=== PATIENT | female | born 1965 | race Caucasian/White ===

== ENCOUNTER 2016-07-30 16:33 | Emergency (ER) | payer BC ==
[2016-07-30] MEDS ORDERED: RX INFO: IV CONTRAST WAS GIVEN 1 EACH MISC MISCELLANE PRN (17:55)
[2016-07-30] MEDS ORDERED: KETOROLAC 30 MG/ML 1 ML VIAL IVP STA (17:55)
[2016-07-30] MEDS ORDERED: SODIUM CHLORIDE 0.9% 1,000 ML IV STA ×2 (17:55→17:59)
[2016-07-30] MEDS ORDERED: ONDANSETRON 4 MG/2 ML VIAL IVP STA (17:55)
--- NOTE | 2016-07-30 17:59 | ED ---
Abdominal Pain HPI - General Chief Complaint: Abdominal Pain Stated Complaint: Abd Pain Time Seen by Provider: 07/30/16 17:49 Source: patient, RN notes reviewed Mode of arrival: ambulatory Limitations: no limitations - History of Present Illness Initial Comments: 50-year-old female presents emergency Department chief complaint of right upper quadrant abdominal pain. He states she's had this for the past few days. Patient states she has nausea and food seems to make it worse. Patient states she hasn't had any vomiting but she has had diarrhea. Patient states she went to her doctor's department on antibiotics and sent her for a CAT scan which she has not had done yet. Patient states she was concerned because she just continues to have the pain she continues to not wanting eat so she thought that she should be seen. Patient states she is not currently having any other symptoms at this time. Patient denies any recent fever, chills, shortness of breath, chest pain, back pain, vomiting, numbness or tingling, dysuria or hematuria, constipation or headaches or visual changes, or any other current symptoms. - Related Data Home Medications Medication Instructions Recorded Confirmed metroNIDAZOLE [Flagyl] 500 mg PO Q8H 07/30/16 07/30/16 Previous Rx's Medication Instructions Recorded Nitrofurantoin Macrocrystal 100 mg PO BID #14 cap 07/30/16 [Macrodantin] Ondansetron Odt [Zofran ODT] 4 mg PO Q8HR PRN #20 tab 07/30/16 Allergies Allergy/AdvReac Type Severity Reaction Status Date / Time ciprofloxacin [From Cipro] Allergy Rash/Hives Verified 07/30/16 18:23 banana AdvReac Nausea & Verified 07/30/16 18:20 Vomiting Review of Systems ROS Statement: Those systems with pertinent positive or pertinent negative responses have been documented in the HPI. ROS Other: All systems not noted in ROS Statement are negative. Past Medical History Past Medical History: No Reported History History of Any Multi-Drug Resistant Organisms: None Reported Past Surgical History: No Surgical Hx Reported Past Psychological History: No Psychological Hx Reported Smoking Status: Never smoker Past Alcohol Use History: None Reported Past Drug Use History: None Reported General Exam - General Exam Comments Initial Comments: General: The patient is awake and alert, in no distress, and does not appear acutely ill. Eye: Pupils are equal, round and reactive to light, extra-ocular movements are intact; there is normal conjunctiva bilaterally. No signs of icterus. Ears, nose, mouth and throat: There are moist mucous membranes and no oral lesions. Neck: The neck is supple, there is no tenderness . Cardiovascular: There is a regular rate and rhythm. No murmur, rub or gallop is appreciated. Respiratory: Lungs are clear to auscultation, respirations are non-labored, breath sounds are equal. No wheezes, stridor, rales, or rhonchi. Gastrointestinal: Soft, non-distended, mildly tender in right upper quadrant of the abdomen without masses or organomegaly noted. There is no rebound or guarding present. No CVA tenderness. Bowel sounds are unremarkable. Back: There is no tenderness to palpation in the midline. There is no obvious deformity. No rashes noted. Musculoskeletal: Normal ROM, no tenderness, There is no pedal edema. There is no calf tenderness or swelling. Sensation intact. Pulses equal bilaterally 2+. Neurological: CN II-XII intact, There are no obvious motor or sensory deficits. Coordination appears grossly intact. Speech is normal. Skin: Skin is warm and dry and no rashes or lesions are noted. Psychiatric: Cooperative, appropriate mood & affect, normal judgment. Limitations: no limitations Course Vital Signs 07/30/16 07/30/16 16:45 19:26 Temperature 98.4 F 100.2 F H Pulse Rate 120 H 92 Respiratory 20 18 Rate Blood Pressure 115/70 131/68 O2 Sat by Pulse 98 98 Oximetry Medical Decision Making - Medical Decision Making 50-year-old female presents emergency department chief complaint abdominal pain. This time lab work and CAT scan are reviewed. This time it does appear the patient does have dehydration as well as hypokalemia. We did place patient' s potassium as well as give the patient fluids. We discussed close follow up with her doctor and we'll switch her to nitrofurantoin which should she patient' s UTI. Patient is agreeable with the plan all questions have been answered. She will be discharged. - Lab Data Result diagrams: 07/30/16 18:30 07/30/16 18:30 Lab Results 07/30/16 07/30/16 07/30/16 Range/Units 18:30 18:30 18:30 WBC 6.2 (3.8-10.6) k/uL RBC 5.89 H (3.80-5.40) m/uL Hgb 17.2 H (11.4-16.0) gm/dL Hct 48.7 H (34.0-46.0) % MCV 82.7 D (80.0-100.0) fL MCH 29.3 (25.0-35.0) pg MCHC 35.4 (31.0-37.0) g/dL RDW 13.2 (11.5-15.5) % Plt Count 365 (150-450) k/uL Neutrophils % (Manual) 51.0 % Band Neutrophils % 5.0 % Lymphocytes % (Manual) 35.0 % Monocytes % (Manual) 4.0 % Eosinophils % (Manual) 5.0 % Neutrophils # (Manual) 3.5 (1.3-7.7) k/uL Lymphocytes # (Manual) 2.2 (1.0-4.8) k/uL Monocytes # (Manual) 0.2 (0-1.0) k/uL Eosinophils # (Manual) 0.3 (0-0.7) k/uL Nucleated RBCs 0 (0-0) /100 WBC Manual Slide Review Performed Toxic Granulation Present Sodium 136 L (137-145) mmol/L Potassium 3.1 L (3.5-5.1) mmol/L Chloride 97 L (98-107) mmol/L Carbon Dioxide 26 (22-30) mmol/L Anion Gap 13 mmol/L BUN 4 L (7-17) mg/dL Creatinine 0.79 (0.52-1.04) mg/dL Est GFR (MDRD) Af Amer >60 (>60 ml/min/1.73 sqM) Est GFR (MDRD) Non-Af >60 (>60 ml/min/1.73 sqM) Glucose 94 (74-99) mg/dL Calcium 9.1 (8.4-10.2) mg/dL Total Bilirubin 0.8 (0.2-1.3) mg/dL AST 34 (14-36) U/L ALT 50 (9-52) U/L Alkaline Phosphatase 66 (38-126) U/L Total Protein 6.2 L (6.3-8.2) g/dL Albumin 3.6 (3.5-5.0) g/dL Amylase 59 (30-110) U/L Lipase 206 (23-300) U/L Urine Color Yellow Urine Appearance Clear (Clear) Urine pH 6.0 (5.0-8.0) Ur Specific [place] 1.016 (1.001-1.035) Urine Protein 1+ H (Negative) Urine Glucose (UA) Negative (Negative) Urine Ketones 4+ H (Negative) Urine Blood Trace H (Negative) Urine Nitrite Negative (Negative) Urine Bilirubin 1+ H (Negative) Urine Urobilinogen 3.0 (<2.0) mg/dL Ur Leukocyte Esterase Trace H (Negative) Urine RBC 2 (0-5) /hpf Urine WBC 6 H (0-5) /hpf Ur Squamous Epith Cells 2 (0-4) /hpf Granular Casts 5 (0) /lpf Urine Mucus Many H (None) /hpf Disposition Clinical Impression: Dehydration, Hypokalemia, Diarrhea, UTI (urinary tract infection) Disposition: HOME SELF-CARE Condition: Stable Instructions: Dehydration (ED) Additional Instructions: Please use medication as discussed. Please follow up with family doctor if symptoms have not improved over the next two days. Please return to the emergency room if your symptoms increase or worsen or for any other concerns. Prescriptions: Nitrofurantoin Macrocrystal [Macrodantin] 100 mg PO BID #14 cap Ondansetron Odt [Zofran ODT] 4 mg PO Q8HR PRN #20 tab PRN Reason: Nausea Referrals: Chris Major DO [Primary Care Provider] - 1-2 days Time of Disposition: 20:13
[2016-07-30 18:55] LABS: Appearance,Urine Clear (Clear); Bilirubin,Urine 1+ (Negative); Glucose,Urine (UA) Negative (Negative); Granular Casts,Urine 5 /lpf (0); Ketones,Urine 4+ (Negative); Leukocyte Esterase,Urine Trace (Negative); Mucus,Urine Many /hpf; Nitrite,Urine Negative (Negative); Particle Count 13874; Protein,Urine 1+ (Negative); RBC,Urine 2 /hpf (0-5); Specific Gravity,Urine 1.016 (1.001-1.035); Squamous Epithelial Cell,Urine 2 /hpf (0-4); UA Billing (MACRO vs. MICRO) MICRO; WBC,Urine 6 /hpf (0-5)
[2016-07-30 18:59] LABS: Aty Lym Flag Slight; CH 29.9; CHCM 36.4; HCT 48.7 % (34.0-46.0); HDW 2.91; HGB 17.2 gm/dL (11.4-16.0); MCH 29.3 pg (25.0-35.0); MCHC 35.4 g/dL (31.0-37.0); Mean Platelet Volume 6.5; RBC 5.89 m/uL (3.80-5.40); RDW 13.2 % (11.5-15.5); WBC 6.2 k/uL (3.8-10.6); WBC (Perox) 6.08
[2016-07-30 19:02] LABS: MCV 82.7 fL (80.0-100.0)
[2016-07-30 19:03] LABS: ALT 50 U/L (9-52); AST 34 U/L (14-36); Alkaline Phosphatase 66 U/L (38-126); Amylase 59 U/L (30-110); Anion Gap 13 mmol/L; Blood Urea Nitrogen 4 mg/dL (7-17); Calcium 9.1 mg/dL (8.4-10.2); Carbon Dioxide 26 mmol/L (22-30); Chloride 97 mmol/L (98-107); Glucose 94 mg/dL (74-99); Non-African American GFR(MDRD) >60 (>60 ml/min/1.73 sqM); Potassium 3.1 mmol/L (3.5-5.1); Sodium 136 mmol/L (137-145); Total Bilirubin 0.8 mg/dL (0.2-1.3); Total Protein 6.2 g/dL (6.3-8.2)
--- NOTE | 2016-07-30 19:16 | CT ---
EXAMINATION TYPE: CT abdomen pelvis w con DATE OF EXAM: 07/30/2016 7:01 PM COMPARISON: 02/18/2013 HISTORY: Upper Abdomen pain with Nausea, vomiting and diarrhea CT DLP: 947 mGycm Automated exposure control for dose reduction was used. TECHNIQUE: Helical acquisition of images was performed from the lung bases through the pelvis. CONTRAST: Performed without Oral Contrast and with IV Contrast, patient injected with 100 mL of Omnipaque 300. FINDINGS: Lung bases are clear. There is no pleural effusion. Liver appears normal. Bile ducts are not dilated. There are tiny calcified splenic granulomata. There is no sign of pancreatic mass. Gallbladder appea rs normal. There is no adrenal mass. Kidneys show satisfactory contrast opacification. There is no hydronephrosi s. I see no intestinal wall thickening. There are no dilated loops. Appendix appears normal. There is narrowing at L4-5 and L5-S1 disc spaces with spur formation. There is no ascites. Bladder distends s moothly. There is no sign of a pelvic mass. IMPRESSION: HEALED GRANULOMATOUS DISEASE. NO SIGN OF ACUTE ABDOMEN AND PELVIS. THERE IS CLEARING OF THE LEFT-SIDE D PERINEPHRIC EDEMA COMPARED TO OLD CT SCAN.
[2016-07-30 19:23] LABS: Add Differential Manual Differential
[2016-07-30] MEDS ORDERED: POTASSIUM CHLORIDE ORAL LIQUID 40 MEQ/30 ML CUP PO ONE (19:25)
[2016-07-30 19:26] LABS: Manual Review Performed; Nucleated Red Blood Cells 0 /100 WBC (0-0); Total Cells Counted 100; Toxic Granulation Present
[2016-07-30 19:27] VITALS: BP 131/68; PULSE 92; RESP 18; TEMP 100.2
== END 2016-07-30 20:18 | disposition home or self-care (01) ==
LOC: EC 16:33
DX: E86.0 Dehydration (principal); E87.6 Hypokalemia; R11.0 Nausea; N39.0 Urinary tract infection, site not specified; Z88.1 Allergy status to other antibiotic agents; Z91.018 Allergy to other foods
CPT/HCPCS: 99284; 96374; 96375; 96361 ×2; 36415; 80053; 82150; 83690; 85025; 81001; 87086; 74177; J2405; J1885; Q9967

== ENCOUNTER → 2022-05-19 | Outpatient (CLI) | payer BC ==
--- NOTE | 2022-05-22 14:07 | MM ---
Reason for Exam: Screening (asymptomatic). Last mammogram was performed 7 year(s) and 2 month(s) ago. Patient History: Menarche at age 13. First Full-Term at age 26. Risk Values: Sandie 5 year model risk: 1.1%. NCI Lifetime model risk: 8.2%. Prior Study Comparison: 02/15/2009 Left Diagnostic Mammogram, [facility]. 03/12/2015 Bilateral Screening Mammogram, [facility]. 03/19/2015 Right Diagnostic Mammogram, [facility]. Tissue Density: The breast tissue is heterogeneously dense. This may lower the sensitivity of mammography. Findings: Analyzed By CAD. Benign-appearing bilateral axillary lymph nodes are seen. There is no suspicious group of microcalcifications or new suspicious mass in either breast. Overall Assessment: Negative, BI-RAD 1 Management: Screening Mammogram of both breasts in 1 year. A clinical breast exam by your physician is recommended on an annual basis and results should be correlated with mammographic findings. Electronically signed and approved by: Kurtis Fish M.D.
== END | disposition home or self-care (01) ==
LOC: RADMAMWWP 12:51
PROVIDERS: ATTEND Family Medicine
DX: Z12.31 Encounter for screening mammogram for malignant neoplasm of breast (principal)
CPT/HCPCS: 77063; 77067

== ENCOUNTER → 2024-06-13 | Outpatient (CLI) | payer BC ==
--- NOTE | 2024-06-13 13:23 | MM ---
Reason for Exam: Screening (asymptomatic). Last mammogram was performed 2 year(s) and 1 month(s) ago. Patient History: Menarche at age 13. First Full-Term at age 26. Postmenopausal. Risk Values: Sandie 5 year model risk: 1.2%. NCI Lifetime model risk: 7.9%. Prior Study Comparison: 03/12/2015 Bilateral Screening Mammogram, [facility]. 03/19/2015 Right Diagnostic Mammogram, [facility]. 05/19/2022 Bilateral MG 3D screening mammo w/cad, [facility]. Tissue Density: The breasts are heterogeneously dense, which may obscure small masses. Findings: Analyzed By CAD. There is no suspicious group of microcalcifications or new suspicious mass in either breast. Overall Assessment: Benign, BI-RAD 2 Management: Screening Mammogram of both breasts in 1 year. . Patient should continue monthly self-breast exams. A clinical breast exam by your physician is recommended on an annual basis. This exam should not preclude additional follow-up of suspicious palpable abnormalities. Note on Sandie scores and lifetime risk: 1. A Sandie score greater than 3% is considered moderate risk. If this is the case, consider specialist referral to assess eligibility for a risk reducing agent. 2. If overall lifetime risk for the development of breast cancer is 20% or higher, the patient may qualify for future screening with alternating mammogram and breast MRI. [facility], , 06/13/2024 1:20 PM. Electronically signed and approved by: Jeremiah Garcia M.D. Radiologis
== END | disposition home or self-care (01) ==
LOC: RADMAMWWP 13:00
PROVIDERS: ATTEND Family Medicine
DX: Z12.31 Encounter for screening mammogram for malignant neoplasm of breast (principal); R92.333 Mammographic heterogeneous density, bilateral breasts; Z78.0 Asymptomatic menopausal state
CPT/HCPCS: 77063; 77067